=== PATIENT | female | born 1985 | race Caucasian/White ===

== ENCOUNTER 2017-05-25 16:18 | Inpatient (IN) ==
[2017-05-25] MEDS ORDERED: LIDOCAINE 1% (10mg/ml) 2mL INJ PF SDV ID PRN ×2 (16:29→17:40)
[2017-05-25] MEDS ORDERED: CALCIUM CARBONATE Chewable 500mg TABLET PO PRN (16:29)
[2017-05-25] MEDS ORDERED: LR 1,000 ML IV PRN (16:29)
[2017-05-25] MEDS ORDERED: SALINE FLUSH 10ml SYRINGE IV PRN (16:29)
[2017-05-25] MEDS ORDERED: DINOPROSTONE 10 MG VAGINAL INSERT VG ONE (16:29)
[2017-05-25] MEDS ORDERED: CARBOPROST 250 MCG/ML INJECTION IM PRN (16:29)
[2017-05-25] MEDS ORDERED: MAG-AL + SIM ORAL LIQUID 30ml PO PRN (16:29)
[2017-05-25] MEDS ORDERED: METHYLERGONOVINE 0.2 MG/ML INJECTION IM PRN (16:29)
[2017-05-25] MEDS ORDERED: TERBUTALINE 1 MG/ML VIAL SQ PRN (16:29)
[2017-05-25] MEDS ORDERED: CALCIUM GLUCONATE 4.65mEq/10ml INJECTION IV PRN (17:10)
[2017-05-25] MEDS ORDERED: CITRIC ACID/SODIUM CITRATE 30ml PO PRN (17:10)
[2017-05-25] MEDS ORDERED: LABETALOL 100 MG TABLET PO ONE (17:15)
[2017-05-25] MEDS ORDERED: MAGNESIUM SULFATE 6gm PREMIX 6 GM/50 ML BAG IV ONE (17:41)
[2017-05-25] MEDS: LABETALOL 20mg/4ml INJECTION IVP PRN (17:51)
[2017-05-25] MEDS: MAGNESIUM SULFATE DRIP 20 GM/500 ML BAG IV SCH (17:59)
[2017-05-25 20:09] VITALS: BMI 45.5
[2017-05-25] MEDS: ACETAMINOPHEN 500 MG TABLET PO PRN (22:55)
[2017-05-26] MEDS ORDERED: D5LR 1,000 ML IV PRN (00:08)
[2017-05-26] MEDS: LABETALOL 20mg/4ml INJECTION IVP PRN ×2 (03:28→09:08)
[2017-05-26] MEDS: MAGNESIUM SULFATE DRIP 20 GM/500 ML BAG IV SCH ×2 (03:55→14:50)
[2017-05-26] MEDS ORDERED: OXYTOCIN DRIP 30 UNIT/500 ML ML IV PRN (05:00)
[2017-05-26] MEDS: ACETAMINOPHEN 500 MG TABLET PO PRN (05:38)
[2017-05-26] MEDS: LIDOCAINE 1% INJ 10 MG, POTASSIUM CHLORIDE INJ 10 MEQ in NS 100 ML IV SCH ×4 (07:29→10:55)
[2017-05-26] MEDS: LABETALOL 100 MG TABLET PO SCH (08:56)
[2017-05-26] MEDS ORDERED: LABETALOL 100mg/20ml INJECTION IVP ONE (09:20)
[2017-05-26] MEDS ORDERED: HYDRALAZINE 20 MG/ML INJECTION IVP ONE (09:59)
[2017-05-26] MEDS ORDERED: ROPIVACAINE 1% 10MG/ML INJ 200 MG, SUFentanil 50 MCG in NS 100 ML EPI PRN (10:31)
[2017-05-26] MEDS ORDERED: DiphenhydrAMINE 50 MG/ML INJECTION IVP PRN (10:31)
[2017-05-26] MEDS ORDERED: NALOXONE 0.4 MG/ML INJECTION IVP PRN (10:31)
--- NOTE | 2017-05-26 11:04 | Anesthesia Preoperative Report ---
Anesthesia Epidural/Spinal Rec - Date and Time Date: 05/26/17 Procedure: Labor Epidural Plan: Epidural - Vital Signs /Para: P:0 - Medictaions & Allergies Inpatient Medications: Current Medications Acetaminophen (Tylenol) 500 - 1,000 mg PO Q4H PRN PRN Reason: Pain Last Admin: 05/26/17 05:38 Dose: 1,000 mg Al Hydroxide/Mg Hydroxide (Maalox Plus) 30 ml PO Q3H PRN PRN Reason: Indigestion Calcium Carbonate (Tums) 500 - 1,000 mg PO Q2H PRN PRN Reason: Indigestion Calcium Gluconate (Calcium Gluconate) 4.65 meq IV O PRN Carboprost Tromethamine (Hemabate) 250 mcg IM O PRN PRN Reason: .Downtime Citric Acid/Sodium Citrate (Oracit) 30 ml PO Q2H PRN Diphenhydramine HCl (Benadryl) 50 mg PO HS PRN PRN Reason: Sleep Diphenhydramine HCl (Benadryl) 25 - 50 mg IVP Q3H PRN PRN Reason: Itching Lactated Ringer's (Lactated Ringers) 1,000 mls @ 999 mls/hr IV .Q1H1M PRN Last Admin: 05/26/17 05:04 Dose: 999 mls/hr Magnesium Sulfate (Magnesium Sulfate Drip) 20 gm in 500 mls @ 50 mls/hr IV .Q10H CARROL PRN Reason: 2 G/HR Last Admin: 05/26/17 03:55 Dose: 2 g/hr, 50 mls/hr Dextrose/Lactated Ringer's (Dextrose 5%-Lactated Ringers) 1,000 mls @ 125 mls/ hr IV .Q8H PRN PRN Reason: Labor Last Admin: 05/26/17 05:04 Dose: 125 mls/hr Oxytocin (Pitocin Drip) 30 unit in 500 mls @ 2 mls/hr IV .Q24H PRN; Protocol PRN Reason: Induction/Augmentation Last Admin: 05/26/17 05:04 Dose: 2 mls/hr Lidocaine HCl 10 mg/ Potassium Chloride 10 meq/ Sodium Chloride 100 mls @ 100 mls/hr IV .Q1H CARROL Stop: 05/26/17 11:43 Last Admin: 05/26/17 10:55 Dose: 100 mls/hr Ropivacaine 200 mg/ Sufentanil Citrate 50 mcg/ Sodium Chloride 121 mls @ 0 mls/ hr EPI PRN PRN; As Directed PRN Reason: Protocol Labetalol HCl (Trandate) 20 mg IVP Q10M PRN Last Admin: 05/26/17 09:08 Dose: 20 mg Labetalol HCl (Normodyne) 200 mg PO O CARROL Last Admin: 05/26/17 08:56 Dose: 200 mg Lidocaine HCl (Xylocaine-Mpf 1% Vial) 0.2 mg ID O PRN PRN Reason: IV Start Lidocaine HCl (Xylocaine-Mpf 1% Vial) 1 mg ID PRN PRN PRN Reason: IV Start Methylergonovine Maleate (Methergine) 0.2 mg IM O PRN Misoprostol (Cytotec) 800 mcg NM ONCE PRN Naloxone HCl (Narcan) 0.1 mg IVP Q2M PRN PRN Reason: Respiratory distress Ondansetron HCl (Zofran) 4 mg IVP Q6H PRN PRN Reason: Nausea &/or vomiting Sodium Chloride (Iv Flush) 10 - 80 ml IV PRN PRN PRN Reason: Flushing Terbutaline Sulfate (Brethine) 0.25 mg SQ PRN PRN Allergies/Adverse Reactions: Allergies Allergy/AdvReac Type Severity Reaction Status Date / Time No Known Allergies Allergy Verified 05/26/17 00:06 - Medical History Respiratory: DENIES: Asthma Cardiovascular: Reports: Hypertension (severe preeclampsia) Gastrointestional: DENIES: Gastroesophageal Reflux Disease Other History: Reports: Now - Surgical History Anesthesia Reactions: None Hx Family Anesthesia Reaction: No History of Motion Sickness: No - Social History Smoking Status: Former smoker - Pertinent Findings Lab Data: CBC and BMP 05/26/17 05:54 05/26/17 05:54 BMP 05/25/17 05/26/17 17:16 05:54 Sodium 139 135 Potassium 3.1 L 2.9 L* Chloride 110 H 106 Carbon Dioxide 20 L 21 L BUN 9.0 6.0 L Creatinine 0.6 L 0.6 L Glucose 101 102 Calcium 8.5 7.7 L D Liver Function 05/25/17 05/26/17 Range/Units 17:16 05:54 Total Bilirubin 0.50 0.70 (0.20-1.30) MG/DL AST 16 19 (14-36) U/L ALT 18 14 (9-52) U/L Alkaline Phosphatase 131 H 156 H (38-126) U/L Albumin 3.0 L 3.2 L (3.5-5.0) G/DL EKG Rhythm: Normal Sinus Rhythm - Physical Exam Respiratory Exam: lungs clear, bilateral breath sounds equal Cardiovascular Exam: regular rate and rhythm - Airway Assessment Mallampati Score: II TMD: 3 Fingerbreadths Neck Extension: good Overall Assessment: may be difficult mask vent, may be difficult intubation - ASA ASA Score: 3 - Discussion Discussion: Discussed risks/options/alternatives of anesthesia and questions answered. Patient consents. Nursing pain assessment noted. Anesthesia Discussion: spouse, family member Attestation Statement: Prior to the delivery of any anesthetic medication, I examined the patient, developed the plan, obtained the patient's consent and discussed the risk and benefits of the procedure with the patient/guardian.
[2017-05-26] MEDS: ONDANSETRON 4 MG/2 ML INJECTION IVP PRN (13:28)
[2017-05-26] MEDS ORDERED: FAMOTIDINE PB 20 MG/50 ML BAG IV ONE (18:29)
[2017-05-26] MEDS ORDERED: CEFAZOLIN 1 G INJECTION IVP ONE (18:29)
[2017-05-26] MEDS ORDERED: CEFAZOLIN PREMIX (MC ONLY) 2 GM/50 ML BAG IV ONE (18:29)
[2017-05-26] MEDS ORDERED: CITRIC ACID/SODIUM CITRATE 30ml PO ONE (18:29)
[2017-05-26] MEDS ORDERED: AZITHROMYCIN IV 500 MG in NS 250ml 250 ML IV ONE (18:30)
[2017-05-26] MEDS ORDERED: TRANEXAMIC ACID 1,000mg/10ml INJECTION IV ONE (18:31)
[2017-05-26] MEDS: NOZIN NASAL SWAB NAS SCH ×2 (18:35→23:44)
[2017-05-26] MEDS ORDERED: FentaNYL 100 MCG/2 ML INJECTION ONE (18:50)
[2017-05-26] MEDS ORDERED: PHENYLEPHRINE INJ 10 MG/ML VIAL IV ONE (18:55)
[2017-05-26] MEDS ORDERED: SALINE FLUSH 10ml SYRINGE ONE (18:55)
[2017-05-26] MEDS ORDERED: OXYTOCIN BOLUS BAG 30 UNIT/500 ML ML IV SCH (19:45)
[2017-05-26] MEDS ORDERED: MORPHINE SULFATE PF 5mg/10ml INJ (Duramorph) ONE (20:01)
[2017-05-26] MEDS ORDERED: HYDROCORTISONE 2.5% CREAM 30gm RECTALLY PRN (20:06)
[2017-05-26] MEDS ORDERED: SIMETHICONE 80 MG CHEWABLE TABLET PO PRN (20:06)
[2017-05-26] MEDS ORDERED: DiphenhydrAMINE 25 MG CAPSULE PO PRN (20:06)
[2017-05-26] MEDS ORDERED: D5LR 1,000 ML IV SCH (20:15)
[2017-05-26] MEDS ORDERED: MAGNESIUM SULFATE DRIP 20 GM/500 ML BAG IV SCH (20:15)
[2017-05-26] MEDS ORDERED: OXYTOCIN DRIP 30 UNIT/500 ML ML IV SCH (20:15)
[2017-05-26] MEDS ORDERED: NALOXONE 2 MG/2 ML INJECTION PFS IVP PRN (21:50)
[2017-05-27] MEDS: ONDANSETRON 4 MG/2 ML INJECTION IVP PRN (01:47)
[2017-05-27] MEDS: MAGNESIUM SULFATE DRIP 20 GM/500 ML BAG IV SCH ×3 (01:52→20:45)
[2017-05-27] MEDS: SIMETHICONE 80 MG CHEWABLE TABLET PO SCH ×4 (01:52→19:00)
[2017-05-27] MEDS: NOZIN NASAL SWAB NAS SCH (08:46)
--- NOTE | 2017-05-27 10:11 | OB/GYN Progress Note ---
OB-PP Progress Note - General PPD1 Maternal Group B Strep: Negative Maternal blood type: B+ Maternal Rubella Status: Immune - Subjective Date: 05/27/17 Lochia: Minimal Pain: controlled Voiding: rodriguez still in place Nausea or Vomiting Present: No - Objective Vital Signs: Last Vital Signs Temp 97.7 F 05/27/17 07:00 Pulse 71 05/27/17 08:00 Resp 16 05/27/17 08:00 BP 146/92 H 05/27/17 08:00 Pulse Ox 96 05/27/17 08:00 Urine Output: good (Diuresing well. ) General: alert and oriented Abdomen: fundus firm, non-tender, soft, non-distended Incision: dressed (Wound vac in place.) Edema Degree: 2+ Laboratory: Laboratory Results - last 24 hr 05/26/17 05/26/17 05/27/17 14:30 14:30 01:46 WBC 14.4 H RBC 4.77 Hgb 13.8 Hct 40.2 MCV 84.3 MCH 28.9 MCHC 34.3 RDW Std Deviation 39.8 Plt Count 250 MPV 11.2 Turbidity < 20 < 20 Sodium 136 136 Potassium 3.6 D 3.5 L Chloride 109 H 107 Carbon Dioxide 20 L 22 Anion Gap 7 7 BUN 6.0 L 4.0 L Creatinine 0.6 L 0.6 L GFR Calculation 117 117 BUN/Creatinine Ratio 10 7 Glucose 100 107 Calculated Osmolality 260 L 259 L Calcium 6.9 L D 6.4 L Total Bilirubin 0.70 0.80 Icterus Index < 2 < 2 AST 16 18 ALT 20 18 Alkaline Phosphatase 149 H 137 H Total Protein 6.4 5.7 L Albumin 3.2 L 2.8 L Globulin 3.2 2.9 Albumin/Globulin Ratio 1.0 L 1.0 L Specimen Hemolysis < 15 < 15 05/27/17 01:46 WBC 17.8 H RBC 4.74 Hgb 13.8 Hct 39.9 MCV 84.2 MCH 29.1 MCHC 34.6 RDW Std Deviation 39.7 Plt Count 240 MPV 11.4 Turbidity Sodium Potassium Chloride Carbon Dioxide Anion Gap BUN Creatinine GFR Calculation BUN/Creatinine Ratio Glucose Calculated Osmolality Calcium Total Bilirubin Icterus Index AST ALT Alkaline Phosphatase Total Protein Albumin Globulin Albumin/Globulin Ratio Specimen Hemolysis - Assessment (1) Status post primary low transverse section Status: Acute (2) Severe pre-eclampsia, delivered, current hospitalization Status: Acute - Plan Plan: routine care, magnesium (until 24 hours PP. ) Her BPs are improved today. Labs are stable. She's diuresing well.
[2017-05-27] MEDS: LABETALOL 100 MG TABLET PO SCH (10:19)
[2017-05-27] MEDS: DOCUSATE CALCIUM 240 MG CAPSULE PO SCH (12:35)
[2017-05-27] MEDS: IBUPROFEN 800 MG TABLET PO PRN (14:21)
--- NOTE | 2017-05-27 17:09 | Operative Note ---
DATE OF SURGERY 05/26/2017 PREOPERATIVE DIAGNOSES 1. 31-year-old 1 at 37 weeks 6 days gestational age. 2. Severe preeclampsia. 3. Remote from vaginal delivery. 4. BMI 45. POSTOPERATIVE DIAGNOSES 1. 31-year-old 1 at 37 weeks 6 days gestational age. 2. Severe preeclampsia. 3. Remote from vaginal delivery. 4. BMI 45. PROCEDURE Primary low transverse section. SURGEON Dr. Huma Rocha MATERIAL MOVERS Ran Arauz, Court Supervisor ANESTHESIA Epidural. ONCOLOGY PHYSICIAN Demetrio Lomeli CRNA COMPLICATIONS None. EBL 700 mL FINDINGS Viable female infant, cephalic ROT position with the caput on the right anterior head. Clear fluids. Apgars 5/8, weight to 2874 g, name "David." Normal-appearing uterus, tubes and ovaries. INDICATIONS Nancy presented to the office for a routine OB check on 05/25/2017. Her blood pressures were in the severe range so she was sent to Maternal/Child for induction. On arrival her blood pressures were still in the severe range so she was given p.o. labetalol until her IV magnesium could get started. Cervidil was placed. The next morning she was started on Pitocin. I still could not get a finger all the way through her cervix but it was much softer the next morning so a Adan bulb was placed through the cervix for cervical ripening. Rupture of membranes happened at that point, returning clear fluids. She received an epidural. When her cervix was 3.5 cm the Adan bulb was expelled. An IUPC was placed to help titrate the Pitocin. At one point during the day the Pitocin had to be turned off due to heart rate decelerations. She never progressed past 3.5 cm and -2 station after more than 24 hours of induction. There was increased caput developing on the baby's head. Since she was still remote from vaginal delivery with severe preeclampsia she agreed to a . PROCEDURE The patient was taken back to the operating room where her epidural was brought up to adequate surgical levels. She already had a Adan catheter in place. Her IUPC was removed. She was prepared and draped in the normal sterile fashion. A Pfannenstiel skin incision was created and carried down to the fascia. The fascia was incised in the midline and extended laterally with the Madden scissors. The fascia was elevated and the underlying rectus muscles were dissected off. The peritoneum was entered bluntly. This was extended superiorly and inferiorly with good visualization of the bladder. The bladder blade was inserted. A bladder flap was created sharply and the bladder blade was reinserted. The lower uterine segment was incised in a transverse fashion and bluntly extended. The infant's head was delivered atraumatically. The nose and mouth were suctioned. The was handed to Dr. Mejia who was asked to attend due to the severe preeclampsia. The placenta was removed manually because the cord started to avulse. The uterus was exteriorized and cleared of all clots and debris. She was found to have an extension of the uterine incision on the left. This was closed with running, locked 0-Monocryl as well as the remainder of the incision. A [id number] of 2-0 chromic was placed on the left edge of the incision for hemostasis. The serosal edges were cauterized as needed. The bladder flap was closed with 3-0 Vicryl. The uterus was returned to the abdomen. The gutters were cleared of all clots and debris. The uterine incision was inspected one final time and still noted to be hemostatic. The peritoneum was closed with running 2-0 Vicryl. Hemostasis was obtained in the rectus muscles with cautery. The fascia was closed with running 0-Vicryl. Hemostasis was obtained in the subcutaneous tissue with the cautery. Cielo's fascia was closed with running 2-0 chromic. The skin was closed with 4-0 Vicryl in a subcuticular manner. The left edge of the incision was inverting so a mattress suture of Monocryl was placed. Steri-Strips were placed. Due to the patient's BMI and large distance between the skin and fascia, a Prevena wound VAC was placed. The patient tolerated the procedure well and was taken to the recovery room in good condition. Sponge, sharp and instrument counts were correct. BLAINE
[2017-05-28] MEDS: NOZIN NASAL SWAB NAS SCH ×5 (00:35→23:25)
[2017-05-28] MEDS: SIMETHICONE 80 MG CHEWABLE TABLET PO SCH ×5 (00:35→21:52)
[2017-05-28] MEDS: HYDROCODONE/APAP 5mg/325mg TABLET PO PRN ×5 (00:35→21:53)
--- NOTE | 2017-05-28 08:31 | OB/GYN Progress Note ---
OB-PP Progress Note - General PPD2 POD:: POD2 Maternal Group B Strep: Negative Maternal blood type: B+ Maternal Rubella Status: Immune - Subjective Date: 05/28/17 Lochia: Minimal Pain: controlled Voiding: voiding Nausea or Vomiting Present: No - Objective Vital Signs: Last Vital Signs Temp 98.3 F 05/28/17 03:32 Pulse 96 05/28/17 03:32 Resp 20 05/28/17 03:32 BP 141/71 H 05/28/17 03:32 Pulse Ox 98 05/28/17 03:32 Urine Output: good General: alert and oriented Respiratory: non-labored Abdomen: fundus firm, non-tender Incision: normal Extremities: non-tender Side: bilateral Site: ankle, foot Edema Degree: 2+ - Assessment (1) Status post primary low transverse section Status: Acute (2) Severe pre-eclampsia, delivered, current hospitalization Status: Acute - Assessment Assessment: SP, Primary C/S - Plan Plan: routine care
[2017-05-28] MEDS: DOCUSATE CALCIUM 240 MG CAPSULE PO SCH (13:16)
[2017-05-28 18:04] VITALS: RESP 18
--- NOTE | 2017-05-28 18:06 | Anesthesia Postoperative Note ---
- Date and Time Date: 05/28/17 Time: 18:06 - Status Patient Participated in Evaluation: Patient Participated in Person Vital Signs: Temperature 98.2 F 05/28/17 17:14 Pulse Rate 105 H 05/28/17 17:14 Respiratory Rate 18 05/28/17 17:14 Blood Pressure 180/116 H 05/28/17 17:14 Pulse Oximetry 98 05/28/17 17:14 Respiratory Function: Airway Patent Mental Status: Alert and Oriented Pain Intensity: 3 Hydration: Taking PO Fluids Complications During Recover: None Apparent - Follow-Up Instructions Instructions: Per Surgeon
[2017-05-29] MEDS: IBUPROFEN 800 MG TABLET PO PRN (02:58)
[2017-05-29 08:15] VITALS: BP 142/88; PULSE 95; TEMP 98.3; O2SAT 99
--- NOTE | 2017-05-29 08:20 | OB/GYN Progress Note ---
OB-PP Progress Note - General PPD3 Maternal Group B Strep: Negative Maternal blood type: B+ Maternal Rubella Status: Immune - Subjective Date: 05/29/17 Lochia: Minimal Pain: controlled Voiding: voiding - Objective Vital Signs: Last Vital Signs Temp 98.3 F 05/29/17 08:00 Pulse 95 05/29/17 08:00 Resp 18 05/29/17 08:00 BP 142/88 H 05/29/17 08:00 Pulse Ox 99 05/29/17 08:00 Urine Output: good General: alert and oriented Abdomen: fundus firm, non-tender, soft, non-distended Incision: dressed (Wound vac in place) Edema Degree: 2+ - Assessment (1) Status post primary low transverse section Status: Acute (2) Severe pre-eclampsia, delivered, current hospitalization Status: Acute - Plan Plan: discharge home, continue PNV Her BP is better with the Procardia. RTC on Mon or Tues for BP check and to remove wound vac.
[2017-05-29] MEDS: DOCUSATE CALCIUM 240 MG CAPSULE PO SCH (08:58)
[2017-05-29] MEDS: HYDROCODONE/APAP 5mg/325mg TABLET PO PRN (08:58)
[2017-05-29] MEDS: NOZIN NASAL SWAB NAS SCH (08:59)
[2017-05-29] MEDS: SIMETHICONE 80 MG CHEWABLE TABLET PO SCH (09:38)
== END 2017-05-29 11:20 | disposition home or self-care (01) | DRG 765 ==
LOC: MC 16:18
PROVIDERS: ADMIT Obstetrics & Gynecology; ATTEND Obstetrics & Gynecology